=== PATIENT | female | born 1995 | race Caucasian/White ===

== ENCOUNTER → 2019-04-16 | Outpatient (CLI) | payer OTHER ==
[~2019-04-16] MED LIST: ANTIBIOTIC; AUGMENTIN 400 M1 CTB PO; BIRTH CONTROL1 EAC1 PO; MOTRIN800 MG PO
[2019-04-17 08:11] LABS: HEPATITIS B SURFACE AB 006395 Non Reactive (.)
[2019-04-17 15:06] LABS: RUBEOLA AB IGG 096560 >300.0 AU/mL (Immune >16.4); VARICELLA-ZOSTER IGG 096206 146 index (Immune >165)
== END | disposition home or self-care (01) ==
LOC: LAB 17:24
PROVIDERS: Family Medicine
DX: Z00.00 Encounter for general adult medical examination without abnormal findings (principal)